=== PATIENT | female | born 1980 | race Caucasian/White ===

== ENCOUNTER 2017-04-22 07:08 | Emergency (ER) | payer BC ==
[2017-04-22 07:08] VITALS: BMI 34.9
--- NOTE | 2017-04-22 07:29 | ED PDOC ---
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 Patient describes pain as squeezing that goes from the left chest to below the breast and to the back which becomes more like a throbbing and burning sensation. Patient states that going up the stairs and walking here brings on the pain. Patient states she's never felt like this before. Patient also notes pressure after she eats at night in the midsternal area as well as a burning pain.Patient denies fever, chills, nausea, vomiting. Admits to eructation, and pain with movement. 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 Myrtle Dickey Time/Duration: > week Symptom Onset: Sudden Symptom Course: Intermittent Quality: Stabbing, Burning, Fullness, Throbbing Activities at Onset: Eating (feeling of fullness after eating at night), Other ( walking up the stairs produce the stabbing, burning, throbbing pain) Context: Exertion (stairs) Past Medical History - Provider Review Nursing Documentation Reviewed: Yes - Travel History Have you recently traveled outside [place] w/in the past 3 mons?: No - Past History Past History: No Previous - Infectious Disease Hx of Infectious Diseases: None - Tetanus Immunization Tetanus Immunization: Unknown - Reproductive Menopause: No Currently : No - Past Medical History Past Medical History: No Previous - Psychiatric Hx Substance Use: No - Past Surgical History Past Surgical History: No Previous - Surgical History Hx Section: Yes (x2) - Anesthesia Hx Anesthesia: Yes Hx Anesthesia Reactions: No Hx Malignant Hyperthermia: No - Suicidal Assessment Feels Threatened In Home Enviroment: No Family/Social History - Physician Review Nursing Documentation Reviewed: Yes Family/Social History: Other Narrative Family History (Free Text): 04/22/17 07:28 patient states parents had issues with syncope due to poor oxygenation 04/22/17 07:30 Smoking Status: Never Smoked Hx Alcohol Use: No Hx Substance Use: No Hx Substance Use Treatment: No Allergies/Home Meds Allergies/Adverse Reactions: Allergies No Known Allergies Allergy (Verified 03/13/14 00:11) Home Medications: Home Meds Medication Instructions Recorded Confirmed No Known Home Med [No Known Home 03/13/14 03/13/14 Med] Review of Systems - Physician Review All systems were reviewed & negative as marked: Yes - Review of Systems Constitutional: absent: Fatigue, Weight Change, Fevers Eyes: absent: Vision Changes, Photophobia, Eye Pain ENT: absent: Hearing Changes, Tinnitus, TMJ Pain Respiratory: absent: SOB, Cough, Sputum, Wheezing Cardiovascular: Chest Pain. absent: Palpitations, Edema Gastrointestinal: absent: Abdominal Pain, Stool Changes, Constipation, Diarrhea Genitourinary Female: absent: Dysuria, Frequency, Hematuria Musculoskeletal: absent: Arthralgias, Back Pain, Neck Pain Skin: absent: Rash, Pruritis, Skin Lesions Neurological: absent: Headache, Dizziness, Focal Weakness, Speech Changes, Facial Droop, Disequilibrium Endocrine: absent: Diaphoresis, Polyuria, Polydipsia Hemo/Lymphatic: absent: Adenopathy, Easy Bleeding, Easy Bruising Psychiatric: absent: Anxiety, Depression, Suicidal Ideation Physical Exam Vital Signs Reviewed: Yes Vital Signs Temp Pulse Resp BP Pulse Ox 04/22/17 07:36 98.1 F 76 16 121/86 98 Temperature: Afebrile Blood Pressure: Normal Pulse: Regular Respiratory Rate: Normal Appearance: Positive for: Comfortable Mental Status: Positive for: Alert and Oriented X 3 - Systems Exam Head: Present: Atraumatic, Normocephalic. No: Tenderness, Laceration Pupils: Present: PERRL Extroacular Muscles: Present: EOMI Conjunctiva: Present: Normal. No: Injected, Icteric Mouth: Present: Moist Mucous Membranes, Normal Lips. No: Dry, Drooling, Trismus Pharnyx: Present: Normal. No: ERYTHEMA, EXUDATE Nose (External): Present: Atraumatic. No: Abrasion, Contusion Nose (Internal): Present: Normal Inspection. No: No Active Bleeding, Moist Neck: Present: Normal Range of Motion, Trachea Midline. No: JVD, Lymphadenopathy Respiratory/Chest: Present: Clear to Auscultation, Good Air Exchange. No: Respiratory Distress, Accessory Muscle Use, Wheezes, Decreased Breath Sounds, Rhonchi, Tender to Palpation Cardiovascular: Present: Regular Rate and Rhythm, Peripheal Pulses Present. No : Murmurs, Normal S1, S2, Irregular Rhythm, Tachycardic, Bradycardic, Rub, Gallop, Muffled Breast/Axillary: Present: Symmetrical. No: Masses, Tender to Palpation Back: Present: Normal Inspection. No: CVA Tenderness, Midline Tenderness, Pain with Leg Raise Upper Extremity: Present: Normal Inspection, Capillary Refill < 2s. No: Cyanosis, Edema Lower Extremity: Present: Normal Inspection, Normal ROM, Capillary Refill < 2 s Neurological: Present: GCS=15, CN II-XII Intact. No: Speech Normal Skin: Present: Warm, Dry, Normal Color. No: Rashes Lymphatic: No: Cervical Adenopathy, Axillary Adenopathy, Inguinal Adenopathy Psychiatric: Present: Alert, Oriented x 3, Normal Insight, Normal Concentration Medical Decision Making ED Course and Treatment: 04/22/17 07:41 EKG troponin CBC CMP Mag Phos ibuprofen for pain Re-evaluation Time: 09:00 Reassessment Condition: Re-examined, Improved - Lab Interpretations Lab Results: 04/22/17 08:30 04/22/17 08:30 Lab Results 04/22/17 08:30: Sodium 139, Potassium 4.4, Chloride 105, Carbon Dioxide 24, Anion Gap 14, BUN 14, Creatinine 0.6 L, Est GFR ( Amer) > 60, Est GFR ( Non-Af Amer) > 60, Random Glucose 90, Calcium 9.8, Phosphorus 3.5, Magnesium 1.7 , Total Bilirubin 0.3, AST 20, ALT 19, Alkaline Phosphatase 37 L, Troponin I < 0.01, Total Protein 7.5, Albumin 4.3, Globulin 3.3, Albumin/Globulin Ratio 1.3 04/22/17 08:30: WBC 4.1 L, RBC 4.04, Hgb 11.7 L, Hct 34.6 L, MCV 85.6, MCH 29.0 , MCHC 33.8, RDW 12.7, Plt Count 161, MPV 9.4, Gran % 47.5 L, Lymph % (Auto) 44.2 H, Haralson % (Auto) 6.8 H, Eos % (Auto) 1.0 L, Baso % (Auto) 0.5, Gran # 1.96 , Lymph # 1.8, Haralson # 0.3, Eos # 0.0, Baso # 0.02 I have reviewed the lab results: Yes Interpretation: No clinic. lab abnormalty - EKG Interpretation EKG Interpretation (Text): 04/22/17 07:47 NS @ 75bpm OR interval 160ms, QTc 419 ms Interpreted by ED Physician: Yes Type: 12 lead EKG - Medication Orders Current Medication Orders: Discontinued Medications Ibuprofen (Motrin Tab) 600 mg PO STAT STA Stop: 04/22/17 07:43 Last Admin: 04/22/17 08:30 Dose: 600 mg MAR Pain/Vitals Document 04/22/17 08:30 RICHARD (Rec: 04/22/17 08:41 RICHARD [id number]) Pain Reassessment Is This A Pain ReAssessment? No Sleep Is patient sleeping during reassessment? No Presence of Pain Presence of Pain Yes Disposition/Present on Arrival - Present on Arrival Any Indicators Present on Arrival: No History of DVT/PE: No History of Uncontrolled Diabetes: No Urinary Catheter: No History Surgical Site Infection Following: None - Disposition Have Diagnosis and Disposition been Completed?: Yes Diagnosis: Muscle strain of anterior chest wall Disposition: HOME/ ROUTINE Disposition Time: 09:17 Patient Problems: Current Active Problems Problem Status Onset Muscle strain of anterior chest wall Acute Condition: FAIR Additional Instructions: rest, try not to do heavy lifting for a few days, may return to work follow up with Primary care doctor within 1 week return to ED if chest pain worsens, syncope, fever, chills. Referrals: Myrtle Dickey MD [Primary Care Provider] - Follow up with primary Forms: [employer] (Fijian)
[2017-04-22 07:39] VITALS: TEMP 98.1
[2017-04-22 08:46] LABS: BASO # 0.02 K/mm3 (0.0-2.0); BASO % 0.5 % (0.0-3.0); GRAN # 1.96 (1.4-6.5); GRAN % 47.5 % (50.0-68.0); HEMOGLOBIN 11.7 g/dL (12.0-16.0); LYMPH # 1.8 (1.2-3.4); LYMPH % 44.2 % (22.0-35.0); MEAN CELL VOLUME 85.6 fl (80.0-105.0); MEAN CORPUSCULAR HGB CONC 33.8 g/dl (31.0-37.0); MEAN PLATELET VOLUME 9.4 fl (7.0-11.0); MONO # 0.3 (0.1-0.6); MONO % 6.8 % (1.0-6.0); RBC 4.04 10^6/uL (3.5-6.1); RED CELL DISTRIBUTION WIDTH 12.7 % (11.5-14.5); WHITE BLOOD COUNT 4.1 10^3/ul (4.5-11.0)
[2017-04-22 09:00] LABS: ALB/GLOB RATIO 1.3 (1.1-1.8); ALBUMIN 4.3 g/dL (3.0-4.8); ALT/SGPT 19 U/L (7-56); AST/SGOT 20 U/L (14-36); BLOOD UREA NITROGEN 14 mg/dL (7-21); CALCIUM 9.8 mg/dL (8.4-10.5); GFR AFRICAN-AMERICAN > 60; GFR NON-AFRICAN AMERICAN > 60; MAGNESIUM 1.7 mg/dL (1.7-2.2)
[2017-04-22 09:09] LABS: TROPONIN I < 0.01 ng/mL
[2017-04-22 09:29] VITALS: BP 100/82; PULSE 85; RESP 18; O2SAT 100
--- NOTE | 2017-04-22 16:44 | CARD ---
APPROVED REPORT EKG Measurement Heart [id number] SD [id number] [id number] <Conclusion> Normal sinus rhythm with sinus arrhythmia Normal ECG
== END 2017-04-22 09:30 | disposition home or self-care (01) ==
LOC: ED 07:08
DX: S29.011A Strain of muscle and tendon of front wall of thorax, initial encounter (principal); X50.9XXA Other and unspecified overexertion or strenuous movements or postures, initial encounter; Y99.0 Civilian activity done for income or pay